=== PATIENT | female | born 1995 | race American Indian/Alaskan Native ===

== ENCOUNTER 2018-02-02 16:07 | Emergency (ER) | payer MEDICAID ==
[2018-02-02 16:25] VITALS: BP 129/84
[2018-02-02 16:58] LABS: Bilirubin,Urine NEG (Negative); Blood,Urine LG (Negative); Color,Urine Yellow (Yellow); Mucus,Urine 3+ /HPF
[2018-02-02 17:01] LABS: RBC,Urine > 182.0 /HPF (0.0-6.0)
[2018-02-02] MEDS ORDERED: XYLOCAINE 1% MPF 5 mL INFILTRATI ONE (19:41)
[2018-02-02] MEDS ORDERED: ROCEPHIN IM ONE (19:41)
--- NOTE | 2018-02-02 19:42 | Emergency Department Report ---
ED Female HPI - General Chief complaint: Urogenital-Female Stated complaint: Gonorrhea Time Seen by Provider: 02/02/18 19:09 Source: patient Mode of arrival: Ambulatory Limitations: No Limitations - History of Present Illness Initial comments: 22-year-old -Thai female reports to the emergency room reporting that she was positive for gonorrhea 3 weeks ago and was placed on a Zithromax and but still reports symptoms. Patient complains of painful intercourse she denies any vaginal discharge or itching or even foul odor. Patient does admit for sore throat. Patient also complains of right toe nail that was ingrown and has grown back awkward which causes the nail to be ingrown. MD Complaint: possible STD Severity scale (0 -10): 0 Improves with: none Worsens with: none Are you Now?: No Last Menstrual Period: 02/01/18 EDC: 11/08/18 Associated Symptoms: denies other symptoms - Related Data Sexually active: Yes Previous Rx's Medication Instructions Recorded Last Taken Type Nitrofurantoin Monohyd/M-Cryst 100 mg PO BID #20 capsule 02/02/18 Unknown Rx [Macrobid 100 mg Capsule] Allergies Allergy/AdvReac Type Severity Reaction Status Date / Time No Known Allergies Allergy Unverified 02/02/18 16:20 ED Review of Systems ROS: Stated complaint: Gonorrhea Other details as noted in HPI Skin: other ( left great toe nail pain) ED Past Medical Hx - Past Medical History Previous Medical History?: No - Surgical History Past Surgical History?: Yes Additional Surgical History: - Social History Smoking Status: Never Smoker Substance Use Type: None - Medications Home Medications: Home Medications Medication Instructions Recorded Confirmed Last Taken Type Nitrofurantoin Monohyd/M-Cryst 100 mg PO BID #20 capsule 02/02/18 Unknown Rx [Macrobid 100 mg Capsule] ED Physical Exam - General Limitations: No Limitations General appearance: alert, in no apparent distress - Head Head exam: Present: atraumatic, normocephalic - Eye Eye exam: Present: EOMI - ENT ENT exam: Present: normal exam, normal orophraynx, mucous membranes moist - Respiratory Respiratory exam: Present: normal lung sounds bilaterally. Absent: respiratory distress - Cardiovascular Cardiovascular Exam: Present: regular rate, normal rhythm. Absent: systolic murmur, diastolic murmur, rubs, gallop - GI/Abdominal GI/Abdominal exam: Present: soft, normal bowel sounds - Neurological Exam Neurological exam: Present: alert, oriented X3 - Skin Skin exam: Present: other (left great toe ingrown toenail to the lateral area) ED Course Vital Signs 02/02/18 16:20 Temperature 99.1 F Pulse Rate 61 Respiratory 18 Rate Blood Pressure 129/84 O2 Sat by Pulse 99 Oximetry ED Medical Decision Making - Medical Decision Making Patient has been evaluated by this provider fast track. It appears the patient was adequately treated for gonorrhea. We will give her a shot of Rocephin 250 mg IM now. Review of her labs appears that she has a urinary tract infection I would treat her with Macrobid 100 mg by mouth twice a day for 10 days.. Regarding her left great toe ingrown toenail. I will refer her to podiatry. Patient verbalizes understanding. Critical care attestation.: If time is entered above; I have spent that time in minutes in the direct care of this critically ill patient, excluding procedure time. ED Disposition Clinical Impression: STD (sexually transmitted disease), Gonorrhea Urinary tract infection Qualifiers: Urinary tract infection type: acute cystitis Hematuria presence: with hematuria Qualified Code(s): N30.01 - Acute cystitis with hematuria Disposition: TO HOME OR SELFCARE Is pt being admited?: No Does the pt Need Aspirin: No Condition: Stable Instructions: Safe Sex (ED), Sexually Transmitted Diseases (ED) Additional Instructions: Please complete antibiotics as prescribed. Please follow-up with podiatry. Prescriptions: Nitrofurantoin Monohyd/M-Cryst [Macrobid 100 mg Capsule] 100 mg PO BID #20 capsule Referrals: PRIMARY CARE, [Primary Care Provider] - 3-5 Days [facility] [Provider Group] - 3-5 Days [facility] [Provider Group] - 3-5 Days Forms: Work/School Release Form(ED)
== END 2018-02-02 20:36 | disposition home or self-care (01) ==
LOC: ED 16:07
DX: N30.01 Acute cystitis with hematuria (principal); A54.9 Gonococcal infection, unspecified
CPT/HCPCS: 81001; 96372; 99283; J0696